=== PATIENT | female | born 1975 | race Caucasian/White ===

== ENCOUNTER 2018-11-16 11:11 | Observation (INO) | payer OTHER ==
[~2018-11-16 11:11] MED LIST: LIDOCAINE 2% (SDV) 5 ML INJ
[2018-11-16] MEDS ORDERED: PROPOFOL 100 ML (14:09)
[2018-11-16] MEDS ORDERED: SUCCINYLCHOLINE CHLORIDE 100 MG/5 ML SYG IV (14:11)
[2018-11-16] MEDS ORDERED: morphine 10 MG INJ (14:42)
[2018-11-16] MEDS ORDERED: CEFAZOLIN 1 GM INJ (14:52)
[2018-11-16] MEDS ORDERED: DEXAMETHASONE 4 MG/ML 5 ML INJ (14:54)
[2018-11-16] MEDS ORDERED: ONDANSETRON 4 MG INJ (14:54)
[2018-11-16] MEDS ORDERED: NEOMYC/POLYMYX/BACIT 30 GM OINT (16:12)
[2018-11-16] MEDS ORDERED: HYDROmorphONE 1 MG/5 ML IV SYRINGE IV ×3 (16:30)
[2018-11-16] MEDS ORDERED: hydrALAzine 20 MG INJ IV (16:30)
[2018-11-16] MEDS ORDERED: DIPHENHYDRAMINE 50 MG INJ IV (16:30)
[2018-11-16] MEDS ORDERED: FENTAnyl 50 MCG/ML VIAL IV ×3 (16:30)
[2018-11-16] MEDS ORDERED: ALBUTEROL 0.083% (NEB) 2.5 MG/3 ML AMP HHN (16:30)
[2018-11-16] MEDS ORDERED: EPHEDrine SULFATE 50 MG/5 ML SYG IV (16:30)
[2018-11-16] MEDS ORDERED: METOCLOPRAMIDE 10 MG INJ IV (16:30)
[2018-11-16] MEDS ORDERED: ACETAMINOPHEN 325 MG TAB PO (16:30)
[2018-11-16] MEDS ORDERED: OXYCODONE/ACETAMINOPHEN (5/325) TAB PO ×2 (16:30)
[2018-11-16] MEDS ORDERED: ONDANSETRON 4 MG INJ IV (16:30)
[2018-11-16] MEDS ORDERED: LABETALOL HCL 20MG INJ IV (16:30)
[2018-11-16] MEDS ORDERED: IBUPROFEN 600 MG TAB PO (16:30)
[2018-11-16] MEDS: MEPERIDINE 25 MG INJ IV (17:38)
[2018-11-16] MEDS: HYDROCODONE/APAP (5/325) TAB PO (20:17)
[2018-11-16] MEDS: CEFAZOLIN 2 GM/50 ML (PMX) 50 ML IVPB (22:38)
[2018-11-17] MEDS: HYDROCODONE/APAP (5/325) TAB PO ×2 (02:11→09:13)
[2018-11-17] MEDS: CEFAZOLIN 2 GM/50 ML (PMX) 50 ML IVPB ×2 (05:09→10:02)
[2018-11-17] MEDS ORDERED: SENNA TAB PO (11:30)
== END 2018-11-17 11:55 | disposition home or self-care (01) ==
LOC: SDS 11:11 → REC 16:21 → 2NE 19:40
DX: D11.0 Benign neoplasm of parotid gland (principal)
CPT/HCPCS: 42415; 88307; 99217